=== PATIENT | male | born 1955 | race Caucasian/White ===

== ENCOUNTER 2023-09-09 11:24 | Outpatient (REF) | payer OTHER, SELFPAY ==
[2023-09-09 15:01] LABS: HCT 49.8 % (40.0-50.0); HGB 16.6 g/dL (13.5-17.5); MCH 28.5 pg (27.0-33.0); MCHC 33.3 % (32.0-36.0); MCV 86 fL (80-95); MPV 9.7 fL (8.0-11.0); Platelet Count 261 10^3/uL (130-400); RBC 5.82 10^6/uL (4.36-5.78); RDW 12.6 % (11.8-14.1); RDW-SD 38.9 fL; WBC 13.09 10^3/uL (4.4-10.8)
[2023-09-09 15:44] LABS: Vitamin D 25 Total 44.3 ng/mL (30-100)
[2023-09-09 16:06] LABS: ALT 35 U/L (16-63); AST 15 U/L (15-37); Albumin 3.5 g/dL (3.4-5.0); Alkaline Phosphatase 134 U/L (46-116); BUN 23 mg/dL (7-18); Bilirubin, Total 0.6 mg/dL (0.2-1.0); CREATININE 0.9 mg/dL (0.70-1.30); Calcium 9.6 mg/dL (8.5-10.1); Calculated LDL 107 mg/dL (<100); Chloride 100 mmol/L (98-107); Cholesterol 173 mg/dL (<200); Estimated GFR 94.19 (mL/min/1.73m2); HDL Cholesterol 53 mg/dL (40-60); Potassium 4.6 mmol/L (3.5-5.1); Sodium 137 mmol/L (136-145); Total Protein 7.8 g/dL (6.4-8.2); Triglyceride 68 mg/dL (<150)
[2023-09-09 16:07] LABS: Folate > 20.0 ng/mL (8.6-20.0); Glucose 302 mg/dL (74-106); Vitamin B12 > 2000 pg/mL (193-986)
[2023-09-09 16:16] LABS: Hemoglobin A1C 10.6 % (<5.7)
== END 2023-09-09 11:25 | disposition home or self-care (01) ==
LOC: NCHCN 11:24
PROVIDERS: Visit Provider Family Medicine
DX: I10 Essential (primary) hypertension (principal); E11.9 Type 2 diabetes mellitus without complications; E78.5 Hyperlipidemia, unspecified; E53.8 Deficiency of other specified B group vitamins; E55.9 Vitamin D deficiency, unspecified; E56.8 Deficiency of other vitamins
CPT/HCPCS: 80053; 80061; 82306; 85027; 82607; 82746; 83036

== ENCOUNTER 2023-12-09 12:31 | Outpatient (REF) | payer OTHER, SELFPAY ==
[2023-12-09 14:45] LABS: HCT 51.8 % (40.0-50.0); HGB 17.1 g/dL (13.5-17.5); MCH 28.4 pg (27.0-33.0); MCV 86 fL (80-95); MPV 10.2 fL (8.0-11.0); Platelet Count 259 10^3/uL (130-400); RDW 12.6 % (11.8-14.1); RDW-SD 39.4 fL; WBC 10.99 10^3/uL (4.4-10.8)
[2023-12-09 15:00] LABS: RBC 6.02 10^6/uL (4.36-5.78)
[2023-12-09 15:26] LABS: Vitamin B12 1332 pg/mL (193-986)
[2023-12-09 15:31] LABS: Folate > 20.0 ng/mL (8.6-20.0)
[2023-12-09 21:28] LABS: PSA, Screening 0.3 ng/mL (<=4.5)
== END 2023-12-09 12:32 | disposition home or self-care (01) ==
LOC: NCHCN 12:31
PROVIDERS: PCP Physician Assistant; Visit Provider Physician Assistant
DX: R79.89 Other specified abnormal findings of blood chemistry (principal); R89.2 Abnormal level of other drugs, medicaments and biological substances in specimens from other organs, systems and tissues; Z12.5 Encounter for screening for malignant neoplasm of prostate
CPT/HCPCS: 84153; 85027; 82607; 82746

== ENCOUNTER 2024-03-15 16:03 | Outpatient (REF) | payer MEDICARE, SELFPAY ==
[2024-03-15 16:50] LABS: ALT 35 U/L (16-63); AST 15 U/L (15-37); Albumin 3.8 g/dL (3.4-5.0); Alkaline Phosphatase 116 U/L (46-116); Anion Gap 7.8 mmol/L (3-11); BUN 21 mg/dL (7-18); Bilirubin, Total 0.48 mg/dL (0.2-1.0); CO2 29.2 mmol/L (21.0-32.0); CREATININE 0.8 mg/dL (0.70-1.30); Calcium 9.4 mg/dL (8.5-10.1); Chloride 103 mmol/L (98-107); Glucose 213 mg/dL (74-106); Potassium 4.5 mmol/L (3.5-5.1); Sodium 140 mmol/L (136-145); Total Protein 7.5 g/dL (6.4-8.2); Vitamin B12 673 pg/mL (193-986); Vitamin D 25 Total 50.5 ng/mL (30-100)
[2024-03-15 16:55] LABS: Folate > 20.0 ng/mL (8.6-20.0)
[2024-03-15 17:05] LABS: COMMENT (LAB VIEW ONLY) 24.48 mg/dL
[2024-03-15 17:09] LABS: Microalb ug/mg Crea 193.2 ug/mg Cr
== END 2024-03-15 16:04 | disposition home or self-care (01) ==
LOC: NCHCN 16:03
PROVIDERS: PCP Physician Assistant; Visit Provider Family Medicine
DX: E11.9 Type 2 diabetes mellitus without complications (principal); R89.2 Abnormal level of other drugs, medicaments and biological substances in specimens from other organs, systems and tissues; R79.89 Other specified abnormal findings of blood chemistry; E56.9 Vitamin deficiency, unspecified; E78.5 Hyperlipidemia, unspecified
CPT/HCPCS: 80053; 82306; 82043; 82570; 82607; 82746

== ENCOUNTER 2025-08-08 07:50 | Outpatient (REF) | payer MEDICARE, SELFPAY ==
[2025-08-08 18:33] LABS: Anion Gap 7.2 mmol/L (3-11); BUN 24 mg/dL (9-23); CO2 29.8 mmol/L (20.0-31.0); Calcium 9.4 mg/dL (8.3-10.6); Chloride 103 mmol/L (98-107); Glucose 135 mg/dL (74-106); Potassium 4.9 mmol/L (3.5-5.1); Sodium 140 mmol/L (136-145)
[2025-08-08 19:40] LABS: Microalb ug/mg Crea 10.4 ug/mg Cr
== END 2025-08-08 07:51 | disposition home or self-care (01) ==
LOC: NCHCN 07:50
PROVIDERS: PCP Physician Assistant; Visit Provider Family Medicine
DX: E11.9 Type 2 diabetes mellitus without complications (principal)
CPT/HCPCS: 80048; 82043; 82570